=== PATIENT | male | born 1960 | race Caucasian/White ===

== ENCOUNTER 2020-11-08 11:59 | Emergency (ER) | payer MEDICAID ==
[~2020-11-08] VITALS: Ht 182.9 cm; Wt 97.7 kg
--- NOTE | 2020-11-08 12:53 | PHYS DOC ---
Past History Additional Past Medical Histor: Stage 4 non sm cell lung cancer, emphysema, thyroid Past Surgical History: Other Additional Past Surgical Histo: R & L inguinal hernia, R arm sx, Alcohol Use: None Adult General Chief Complaint Chief Complaint: THUMB HPI HPI Patient is a [age] year old [sex] who presents with [] Reports stage IV lung cancer with mets to brain and residual decreased sensation to right upper extremity. Table saw accident cutting off distal tip without obvious bone involvement. Bleeding stopped with direct pressure. Tetanus not up-to-date Review of Systems Review of Systems Fourteen body systems of review of systems have been reviewed. See HPI for pertinent positives and negative responses, other talley all other systems are negative, non-pertinent or non-contributory Allergies Allergies Allergies Coded Allergies Type Severity Reaction Last Updated Verified codeine Allergy Unknown 11/08/20 Yes Physical Exam Physical Exam Constitutional: Well developed, well nourished, no acute distress, non-toxic appearance. HENT: Normocephalic, atraumatic, bilateral external ears normal, oropharynx moist, no oral exudates, nose normal. Eyes: PERRLA, EOMI, conjunctiva normal, no discharge. Neck: Normal range of motion, no tenderness, supple, no stridor. Cardiovascular: Heart rate regular, sinus rhythm, no murmurs rubs or gallops Lungs & Thorax: Bilateral breath sounds clear to auscultation Abdomen: Bowel sounds normal, soft, no tenderness, no masses, no pulsatile masses. Nonsurgical abdomen, no peritoneal signs Skin: Warm, dry, no erythema, no rash. Back: No tenderness, no CVA tenderness. Extremities: No tenderness, no cyanosis, no clubbing, ROM intact, no edema. Neurologic: Alert and oriented X 3, grossly normal motor & sensory function, no focal deficits noted. Psychologic: Affect normal, judgement normal, mood normal. Current Patient Data Vital Signs Vital Signs Date Time Temp Pulse Resp B/P (MAP) Pulse Ox O2 Delivery O2 Flow Rate FiO2 11/08/20 12:09 98.3 97 18 106/73 94 Room Air EKG EKG [] Radiology/Procedures Radiology/Procedures EXAM: PA, oblique and lateral views of the right hand DATE: 11/08/2020 12:42 PM INDICATION: Reason: RIGHT THUMB AMPUTATION WITH SKILL SAW / Spl. Instructions: / History: . COMPARISON: No Prior FINDINGS/ IMPRESSION: Blunting of the soft tissues overlying the tuft of the distal phalanx right madi mb without associated osseous abnormality. Multifocal degenerative changes most prominent within the thumb CMC joint, scattered IP joints and MCP joints. Electronically signed by: Albert Alejandro MD (11/08/2020 1:30 PM) [id number] Heart Score Risk Factors: Risk Factors: DM, Current or recent (<one month) smoker, HTN, HLP, family history of CAD, obesity. Risk Scores: Risk Factors: DM, Current or recent (<one month) smoker, HTN, HLP, family history of CAD, obesity. Course & Med Decision Making Course & Med Decision Making Pertinent Labs and Imaging studies reviewed. (See chart for details) [] Dragon Disclaimer Dragon Disclaimer This electronic medical record was generated, in whole or in part, using a voice recognition dictation system. Departure Departure: Impression: Primary Impression: Injury of thumb, right Disposition: 01 HOME / SELF CARE / HOMELESS Condition: STABLE Referrals: PCP,NO (PCP) Additional Instructions: As discussed prior to your departure, you suffered an amputation to the distal tip of your right thumb. There was no bone involvement. Your tetanus was updated. There is no indication for repair or antibiotic use. As disclosed, continued supportive care and wound care practices with close primary care physician follow-up for repeat evaluation is advised to ensure adequate healing. Complications are rare but if they do arise, please do not hesitate to come back for repeat evaluation and intervention as necessary. It was a pleasure to take care of you and I wish you the best going for KAEL RAYMOND DO Nov 08, 2020 12:53
[2020-11-08] MEDS ORDERED: DIPH,PERTUSS(ACELL),TET VAC/PF 0.5 ML SYRINGE. VAX IM ONE (13:15)
--- NOTE | 2020-11-08 13:32 | RAD ---
EXAM: PA, oblique and lateral views of the right hand DATE: 11/08/2020 12:42 PM INDICATION: Reason: RIGHT THUMB AMPUTATION WITH SKILL SAW / Spl. Instructions: / History: . COMPARISON: No Prior FINDINGS/ IMPRESSION: Blunting of the soft tissues overlying the tuft of the distal phalanx right thumb without associated osseous abnormality. Multifocal degenerative changes most prominent within the thumb CMC joint, scattered IP joints and MC P joints. Electronically signed by: Albert Alejandro MD (11/08/2020 1:30 PM) [email or web address]
[2020-11-08 13:45] VITALS: BP 110/71
[2020-11-08] MEDS ORDERED: NEOMY/BACITR/POLYMYXIN OINT PACKET. TP ONE ×2 (13:45→13:46)
== END 2020-11-08 14:08 | disposition home or self-care (01) ==
LOC: ER 11:59
DX: S69.91XA Unspecified injury of right wrist, hand and finger(s), initial encounter (principal); Z85.118 Personal history of other malignant neoplasm of bronchus and lung; Z88.5 Allergy status to narcotic agent; W26.8XXA Contact with other sharp object(s), not elsewhere classified, initial encounter; Y93.89 Activity, other specified; Y92.89 Other specified places as the place of occurrence of the external cause; Y99.8 Other external cause status
CPT/HCPCS: 73130; 90471; 90715; 99283